=== PATIENT | female | born 1970 | race Caucasian/White ===

== ENCOUNTER 2017-06-13 17:08 | Emergency (ER) | payer SELFPAY ==
[2017-06-13] MEDS ORDERED: Acetaminophen TAB* 325 MG PO ONE (17:45)
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
[2017-06-13 20:14] VITALS: BP 112/77
== END 2017-06-13 20:12 | disposition home or self-care (01) ==
LOC: ED 17:08
DX: M54.2 Cervicalgia (principal); M25.512 Pain in left shoulder; V89.2XXA Person injured in unspecified motor-vehicle accident, traffic, initial encounter; Y92.410 Unspecified street and highway as the place of occurrence of the external cause
CPT/HCPCS: 71250; 99282; A9270-GY